=== PATIENT | female | born 1950 | race Caucasian/White ===

== ENCOUNTER 2017-09-04 17:54 | Inpatient (IN) | payer OTHER, MEDICARE ==
[~2017-09-04] VITALS: Ht 160 cm; Wt 85.7 kg
[2017-09-04 18:49] VITALS: BP 101/65; PULSE 116; RESP 18; TEMP 97.6; O2SAT 99
[2017-09-04] MEDS ORDERED: AMBI10TA PO (19:12)
--- NOTE | 2017-09-04 20:04 | PD ---
HPI Chief Complaint: Psychiatric Symptoms Time Seen by Provider: 19:29 Travel History International Travel<30 days: No Contact w/Intl Traveler<30days: No Traveled to known affect area: No History of Present Illness HPI 67-year-old white female presents to emergency department under [place] act by PD. Patient states that she was upset and had called her daughter. During our conversation she had stated that she would rather kill herself and continued to live with her partner who has developing dementia. Questionable Alzheimer's. The patient states that she is not suicidal. She is not homicidal. She had only made the statement out of frustration. She has no intention on hurting herself. She denies any toxic ingestions. No recent medical complaints other than her chronic insomnia. Patient denies chest pain, shortness of breath, nausea, vomiting, bowel pain urine symptoms. She denies alcohol tobacco. No drugs. PFSH Past Medical History Narrative Medical Insomnia Patient Takes Glucophage: No Tetanus Vaccination: > 5 Years Influenza Vaccination: Yes ?: Not Menopausal: Yes : 3 Para: 3 Miscarriage: 0 : 0 Tubal Ligation: Yes Past Surgical History Section: Yes (x3) Social History Alcohol Use: No (Pt denies.) Tobacco Use: No (Pt denies. ) Substance Use: No (Pt denies. ) Allergies-Medications (Allergen,Severity, Reaction): Coded Allergies: No Known Drug Allergies (Verified Allergy, Unknown, 09/04/17) Per pt. Reported Meds & Prescriptions Reported Meds & Active Scripts Active Reported Ambien (Zolpidem Tartrate) 10 Mg Tab 10 Mg PO HS Review of Systems General / Constitutional: No: Fever Eyes: No: Visual changes HENT: No: Headaches Cardiovascular: No: Chest Pain or Discomfort Respiratory: No: Shortness of Breath Gastrointestinal: No: Abdominal Pain Genitourinary: No: Dysuria Musculoskeletal: No: Pain Skin: No Rash Neurologic: No: Weakness Psychiatric: Positive: Depression, Mood Disorder, Other (insomnia), No: Anxiety , Suicidal Ideations, Disorder of Thought, Substance Abuse, Homicidal Ideation Endocrine: No: Polydipsia Hematologic/Lymphatic: No: Easy Bruising Physical Exam Narrative GENERAL: Well-nourished, well-developed patient. SKIN: Warm and dry. HEAD: Normocephalic and atraumatic. EYES: No scleral icterus. No injection or drainage. ENT: No nasal drainage noted. Mucous membranes pink. Airway patent. NECK: Supple, trachea midline. Moves head freely without obvious discomfort. CARDIOVASCULAR: Regular rate and rhythm without murmurs, gallops, or rubs. RESPIRATORY: Breath sounds equal bilaterally. No accessory muscle use. GASTROINTESTINAL: Abdomen soft, non-tender, nondistended. EXTREMITIES: No cyanosis or edema. BACK: Nontender without obvious deformity. No CVA tenderness. NEURO: Patient is alert and oriented. no sensorimotor deficits. Nonfocal. Normal speech. PSYCH: No delusions. No auditory or visual hallucinations. Data Data Last Documented VS Vital Signs Date Time Temp Pulse Resp B/P (MAP) Pulse Ox O2 Delivery O2 Flow Rate FiO2 09/04/17 23:46 91 16 123/73 (90) 96 Room Air 09/04/17 18:49 97.6 Orders Orders Diet Regular Basic (09/04/17 Dinner) Complete Blood Count With Diff (09/04/17 18:52) Comprehensive Metabolic Panel (09/04/17 18:52) Thyroid Stimulating Hormone (09/04/17 18:52) Urinalysis - C+S If Indicated (09/04/17 18:52) Psych Screen (09/04/17 18:52) Drug Screen, Random Urine (09/04/17 18:52) Alcohol (Ethanol) (09/04/17 18:52) Salicylates (Aspirin) (09/04/17 18:52) Tylenol (Acetaminophen) (09/04/17 18:52) MDM Medical Decision Making Medical Screen Exam Complete: Yes Emergency Medical Condition: Yes Medical Record Reviewed: Yes Differential Diagnosis MDM: High Differential diagnoses: Schizophrenia, schizoaffective disorder, bipolar, anxiety, depression, adjustment reaction, mood disorder NOS, ODD, depressive disorder NOS, dementia, dementia with agitation, psychosis NOS, substance induced mood disorder, DMDD, Asperger syndrome, infection,electrolyte abnormality, malingering. Narrative Course Mental health screening discussed with the patient. Psychiatric screen ordered. The patient refused laboratory testing. The patient does not appear toxic. Her vital signs are stable. There is no report of any toxic ingestion. We will not force the patient to succumb to laboratory testing. The patient will be allowed to be evaluated in the morning by the psychiatrist. Diagnosis Primary Impression: Medical clearance for psychiatric admission Condition: Stable Rikki Smiley Sep 04, 2017 20:04
[2017-09-04 22:16] VITALS: PULSE 98
[2017-09-04 23:46] VITALS: BP 123/73; PULSE 91; RESP 16; O2SAT 96
[2017-09-05] MEDS ORDERED: ACETAMINOPHEN 325 MG TAB PO PRN (00:30)
[2017-09-05] MEDS ORDERED: ALUMINUM/MAGNESIUM/SIMETH 30 ML CUP PO PRN (00:30)
[2017-09-05] MEDS ORDERED: MAGNESIUM HYDROXIDE SUSP 30 ML CUP PO PRN (00:30)
[2017-09-05] MEDS ORDERED: NICOTINE 21 MG/24 HR PATCH T-DERMAL PRN (00:30)
[2017-09-05] MEDS ORDERED: REMOVE OLD PATCH T-DERMAL PRN (00:45)
[2017-09-05 01:03] LABS: BASOPHIL # 0.1 TH/MM3 (0-0.2); BASOPHIL % 1.2 % (0.0-2.0); EOSINOPHIL # 0.2 TH/MM3 (0-0.4); EOSINOPHIL % 3.6 % (0.0-4.0); HEMATOCRIT 39.8 % (35.0-46.0); LYMPH % 51.8 % (9.0-44.0); LYMPHOCYTE # 3.2 TH/MM3 (1.0-4.8); MEAN CELL VOLUME 92.9 FL (80.0-100.0); MEAN CORPUSCULAR HEMOGLOBIN 32.6 PG (27.0-34.0); MEAN CORPUSCULAR HGB CONC 35.1 % (32.0-36.0); MONO % 11.1 % (0.0-8.0); MONOCYTE # 0.7 TH/MM3 (0-0.9); NEUT % 32.3 % (16.0-70.0); PLATELET COUNT 195 TH/MM3 (150-450); RED BLOOD COUNT 4.28 MIL/MM3 (4.00-5.30); RED CELL DISTRIBUTION WIDTH 13.8 % (11.6-17.2); WHITE BLOOD COUNT 6.1 TH/MM3 (4.0-11.0)
[2017-09-05 01:07] LABS: ALBUMIN 3.5 GM/DL (3.4-5.0); ALT (GPT) 43 U/L (10-53); AST (GOT) 38 U/L (15-37); BICARBONATE 22.9 MEQ/L (21.0-32.0); BLOOD UREA NITROGEN 21 MG/DL (7-18); CALCIUM 8.3 MG/DL (8.5-10.1); CHLORIDE 112 MEQ/L (98-107); CREATININE 0.98 MG/DL (0.50-1.00); GLOMERULAR FILTRATION RATE 56 ML/MIN (>89); GLUCOSE,RANDOM 85 MG/DL (74-106); SODIUM (NA) 146 MEQ/L (136-145)
[2017-09-05 01:18] LABS: ALKALINE PHOSPHATASE 95 U/L (45-117); TOTAL BILIRUBIN ADULT 0.3 MG/DL (0.2-1.0); TOTAL PROTEIN 7.6 GM/DL (6.4-8.2)
[2017-09-05 01:20] LABS: ACETAMINOPHEN LESS THAN 2.0 MCG/ML (10.0-30.0)
[2017-09-05 02:00] VITALS: BP 151/79; PULSE 81; RESP 16; TEMP 98.5; O2SAT 98
[2017-09-05 05:57] VITALS: BP 140/78; PULSE 71; RESP 16; TEMP 97.9; O2SAT 99
[2017-09-05] MEDS ORDERED: hydrOXYzine HCL 50 MG TAB PO PRN (14:45)
--- NOTE | 2017-09-05 14:48 | HHI.HP ---
Provisional Diagnosis Admission Date Sep 05, 2017 at 00:29 [place] I. Adjustment disorder with mixed disturbances of emotion and conduct Certification of Person's Competence To Provide Express and Informed Consent I have personally examined Susanna Barillas , a person being served at [facility] on, Sep 05, 2017 14:35. Express and informed consent means consent voluntarily given in writing, by a competent person, after sufficient explanation and disclosure of the subject matter involved to enable the person to make a knowing and willful decision without any element of force, fraud, deceit, duress, or other form of constraint or coercion. This person is 18 years of age or older, is not now known to be incompetent to consent to treatment with a guardian advocate, and does not have a health care surrogate or proxy currently making medical treatment decisions. I have found this person to be one of the following: [] Competent to provide express and informed consent, as defined above, for voluntary admission to this facility and is competent to provide express and informed consent for treatment. He/she has the consistent capacity to make well reasoned, willful, and knowing decisions concerning his or her medical or mental health treatment. The person fully and consistently understands the purpose of the admission for examination/placement and is fully capable of personally exercising all rights assured [place] [] Incompetent to provide express and informed consent to voluntary admission, and this is incompetent to provide express and informed consent to treatment. The person must be transferred to involuntary status and a petition for a guardian advocate filed with the Circuit Court. [xxx] Refusing to provide express and informed consent to voluntary admission but is competent to provide express and informed consent for treatment. The person must be discharged or transferred to involuntary status. Form shall be completed within 24 hours of a person's arrival at the receiving facility and filed in the clinical record of each person: 1. Admitted on a voluntary basis 2. Permitted to provide express and informed consent to his/her own treatment 3. Allowed to transfer from involuntary to voluntary status 4. Prior to permitting a person to consent to his or her own treatment after having been previously found incompetent to consent to treatment. History of Present Illness Capacity: Lacks Capacity (patient lacks capacity to sign for hospitalization, patient has capacity to sign for medication) Psych Chief Complaint: depressed suicidal ideation HPI Patient is a 67-year-old Q[place] female who comes her under [place] act by the [employer] dated 09/04/17 at 5:20 PM the document reviewed stating LC called her daughter and told her she wanted to kill herself multiple times because she is tired of dealing with her life partner having Alzheimer's LC stated to me that she felt like killing herself at that moment. Patient seen screened in the ED and appears there is no urine toxicology done on alcohol level was 11. Patient seen in her room with nurse rosemary, patient is alert oriented short stockily built female states she lives with her significant other 3-1/2 years, recently he has been trying more and more symptoms of Alzheimer's disease to the point where she is becoming more and more burdened by a been depressed by it. She acknowledges initial and mid insomnia with a.m. anergy, decreased appetite decreased concentration and attention. She states there is some increased irritability also. She states she's had some vague suicidal ideation. He states that some increased alcohol use also. She states she has used marijuana 10 years ago but none recently. She denies any voices or visions with this because of vagueness about the suicidality. She does state she has had at least one or 2 suicide attempts in number of years ago. Patient has 2 adult daughters who live in [place] and [place]. Mini-Mental the present time patient meets criteria for involuntary psychiatric hospitalization under the [place] act I'll do first opinion request second opinion. Because of this history of some increase alcohol use will place patient on the similar protocol. We will also offer her Remeron 15 mg at at bedtime. Hopeless. Short stay and return her to her home Review of Systems Constitutional: DENIES: Diaphoretic episodes, Fatigue, Fever, Weight gain, Weight loss, Chills, Dizziness, Change in appetite, Night Sweats Endocrine: DENIES: Abnorml menstrual pattern, Heat/cold intolerance, Polydipsia , Polyuria, Polyphagia Eyes: DENIES: Blurred vision, Diplopia, Eye inflammation, Eye pain, Vision loss , Photosensitivity, Double Vision Ears, nose, mouth, throat: DENIES: Tinnitus, Hearing loss, Vertigo, Nasal discharge, Oral lesions, Throat pain, Hoarseness, Ear Pain, Running Nose, Epistaxis, Sinus Pain, Toothache, Odynophagia Respiratory: DENIES: Apneas, Cough, Snoring, Wheezing, Hemoptysis, Sputum production, Shortness of breath Cardiovascular: DENIES: Chest pain, Palpitations, Syncope, Dyspnea on Exertion , PND, Lower Extremity Edema, Orthopnea, Claudication Gastrointestinal: DENIES: Abdominal pain, Black stools, Bloody stools, Constipation, Diarrhea, Nausea, Vomiting, Difficulty Swallowing, Anorexia Genitourinary: DENIES: Abnormal vaginal bleeding, Dysmenorrhea, Dyspareunia, Sexual dysfunction, Urinary frequency, Urinary incontinence, Urgency, Hematuria , Dysuria, Nocturia, Vaginal discharge Musculoskeletal: DENIES: Joint pain, Muscle aches, Stiffness, Joint Swelling, Back pain, Neck pain Integumentary: DENIES: Abnormal pigmentation, Pruritus, Rash, Nail changes, Breast masses, Breast skin changes, Nipple discharge Hematologic/lymphatic: DENIES: Bruising, Lymphadenopathy Immunologic/allergic: DENIES: Eczema, Urticaria Neurologic: DENIES: Abnormal gait, Headache, Localized weakness, Paresthesias, Seizures, Speech Problems, Tremor, Poor Balance Psychiatric: COMPLAINS OF: Anxiety, Depression, Suicidal Ideation Past Psych History Psychological trauma history Patient denies Violence risk - others (6 mos) Low Violence risk - self (6 mos) Low to moderate Substance Abuse History Drugs/Alcohol past 12 months Patient has had recent increase in alcohol use states no marijuana use and many years Past Family Social History Coded Allergies: No Known Drug Allergies (Verified Allergy, Unknown, 09/04/17) Per pt. Reported Medications Zolpidem (Ambien) 10 Mg Tab, 10 MG PO HS, TAB 0 Refills 09/04/17 Current Medications Medications (Trade) Dose Ordered Sig/Felicita Route Start Time Stop Time Status Last Admin (Tylenol) 650 mg Q4H PRN PO 09/05/17 00:30 09/05/17 01:32 (Milk Of Magnesia Liq) 30 ml DAILY PRN PO 09/05/17 00:30 (Mag-Al Plus Susp Liq) 30 ml Q6H PRN PO 09/05/17 00:30 (Habitrol 21 Mg Patch.24 Hr) 1 patch DAILY PRN T-DERMAL 09/05/17 00:30 Miscellaneous Information 1 HS PRN T-DERMAL 09/05/17 00:45 (Remeron) 15 mg HS PO 09/05/17 21:00 UNV Family Psych History Patient denies Social History Patient and lives with significant other at this time Patient's Strengths (min. 2) Patient verbal label axis health care Physical Exam Patient medically cleared ED patient resting quietly in her room she is in no acute distress, she is in no respiratory distress, no complaints of abdominal pain. Patient moves all 4 extremities without difficulty no abnormal motor movements noted Vital Signs Vital Signs Date Time Temp Pulse Resp B/P (MAP) Pulse Ox O2 Delivery O2 Flow Rate FiO2 09/05/17 05:57 97.9 71 16 140/78 (98) 99 09/04/17 23:46 Room Air Lab Results Test 09/05/17 00:36 White Blood Count 6.1 TH/MM3 Red Blood Count 4.28 MIL/MM3 Hemoglobin 14.0 GM/DL Hematocrit 39.8 % Mean Corpuscular Volume 92.9 FL Mean Corpuscular Hemoglobin 32.6 PG Mean Corpuscular Hemoglobin Concent 35.1 % Red Cell Distribution Width 13.8 % Platelet Count 195 TH/MM3 Mean Platelet Volume 9.0 FL Neutrophils (%) (Auto) 32.3 % Lymphocytes (%) (Auto) 51.8 % Monocytes (%) (Auto) 11.1 % Eosinophils (%) (Auto) 3.6 % Basophils (%) (Auto) 1.2 % Neutrophils # (Auto) 2.0 TH/MM3 Lymphocytes # (Auto) 3.2 TH/MM3 Monocytes # (Auto) 0.7 TH/MM3 Eosinophils # (Auto) 0.2 TH/MM3 Basophils # (Auto) 0.1 TH/MM3 CBC Comment DIFF FINAL Differential Comment Blood Urea Nitrogen 21 MG/DL Creatinine 0.98 MG/DL Random Glucose 85 MG/DL Total Protein 7.6 GM/DL Albumin 3.5 GM/DL Calcium Level 8.3 MG/DL Alkaline Phosphatase 95 U/L Aspartate Amino Transf (AST/SGOT) 38 U/L Alanine Aminotransferase (ALT/SGPT) 43 U/L Total Bilirubin 0.3 MG/DL Sodium Level 146 MEQ/L Potassium Level 3.9 MEQ/L Chloride Level 112 MEQ/L Carbon Dioxide Level 22.9 MEQ/L Anion Gap 11 MEQ/L Estimat Glomerular Filtration Rate 56 ML/MIN Free Thyroxine 0.98 NG/DL Thyroid Stimulating Hormone 3rd Gen 4.450 uIU/ML Salicylates Level LESS THAN 1.7 MG/DL Acetaminophen Level LESS THAN 2.0 MCG/ML Ethyl Alcohol Level 11 MG/DL Mental Status Examination Appearance: Disheveled Consciousness: Alert Orientation: x4 Motor Activity: Normal gait Speech: Unremarkable Language: Adequate Fund of Knowledge: Adequate Attention and Concentration: Adequate Memory: Impaired Mood: Sad Affect: Other (decreased range and intensity) Thought Process & Associations: Intact Thought Content: Appropriate Hallucination Type: None Delusion Type: None Suicidal Ideation: No (denies) Suicidal Plan: No Suicidal Intention: No Homicidal Ideation: No Homicidal Plan: No Insight: Fair Judgment: Impulsive Assessment & Plan Problem List: (1) Adjustment disorder with mixed disturbance of emotions and conduct in remission ICD Codes: F43.25 - Adjustment disorder with mixed disturbance of emotions and conduct Assessment & Plan Estimated LOS: 3-5 days this time patient meets criteria for involuntary psychiatric hospitalization on the [place] act I'll do first opinion request second opinion. I feel she has capacity. We'll start patient on Remeron 15 mg at at bedtime. Because of the slight increase use of alcohol will also initiate the ciwa protocol Discharge Planning Return home Request HC Surrog/Guard Advoc?: No Michael Combs MD Sep 05, 2017 14:48
[2017-09-05] MEDS ORDERED: LORazepam 2 MG/ML VIAL IV PUSH PRN ×4 (15:15)
[2017-09-05] MEDS ORDERED: LORazepam 2 MG TAB PO PRN (15:15)
[2017-09-05] MEDS ORDERED: LORazepam 1 MG TAB PO PRN (15:15)
[2017-09-05] MEDS ORDERED: FLUMAZENIL 0.5 MG/5 ML VIAL IV PUSH PRN (15:15)
[2017-09-05 17:40] VITALS: BP 119/79; PULSE 130; RESP 18; TEMP 98; O2SAT 97
[2017-09-05] MEDS: MIRTAZAPINE 15 MG TAB PO SCH (21:20)
[2017-09-06 06:21] VITALS: BP 139/71; PULSE 70; RESP 16; TEMP 98.1
--- NOTE | 2017-09-06 08:06 | PD.PSY.CON ---
Provisional Diagnosis Admission Date Sep 05, 2017 at 00:29 [place] I. Adjustment disorder with mixed disturbances of emotion and conduct History of Present Illness Service Psychiatry Consult Requested By Dr. Combs Reason for Consult Second opinion Primary Care Physician Claudia oCllins M.D. HPI Patient is a 67-year-old Israeli female who comes her under [place] act by the [facility] [employer] dated 09/04/17 at 5:20 PM the document reviewed stating LC called her daughter and told her she wanted to kill herself multiple times because she is tired of dealing with her life partner having Alzheimer's LC stated to me that she felt like killing herself at that moment. Patient seen screened in the ED and appears there is no urine toxicology done on alcohol level was 11. Patient seen in her room with nurse rosemary, patient is alert oriented short stockily built female states she lives with her significant other 3-1/2 years, recently he has been trying more and more symptoms of Alzheimer's disease to the point where she is becoming more and more burdened by a been depressed by it. She acknowledges initial and mid insomnia with a.m. anergy, decreased appetite decreased concentration and attention. She states there is some increased irritability also. She states she's had some vague suicidal ideation. He states that some increased alcohol use also. She states she has used marijuana 10 years ago but none recently. She denies any voices or visions with this because of vagueness about the suicidality. She does state she has had at least one or 2 suicide attempts in number of years ago. Patient has 2 adult daughters who live in [place] and [place]. Mini-Mental the present time patient meets criteria for involuntary psychiatric hospitalization under the [place] act I'll do first opinion request second opinion. Because of this history of some increase alcohol use will place patient on the similar protocol. We will also offer her Remeron 15 mg at at bedtime. Hopeless. Short stay and return her to her home 09/06/17 -second opinion Patient is a 67-year-old Filipina woman, domiciled with significant other who was brought under [place] act by police after having stated that she would kill herself rather live with her partner that has dementia which daughter called 9 1 and patient was brought to the inpatient psychiatry for further evaluation and management. As per nursing staff patient blames daughter for her admission. Patient was found in day room eating breakfast noted, cooperative. Patient states that she is in hospital because she had taken Ambien "which made me all weird" as well as having drank alcohol at that time when she calls her daughter stated "do you want me to kill myself". She states that her daughter then called 9 1 was brought to police to her residence that she was brought to the hospital. Patient states she has not had previous episodes of suicidal ideations nor having previous suicide attempt although chart reports patient has had prior suicide attempts. Patient states she had been sad recently her partner having memory loss and diagnosis of Alzheimer's since June this year and states having been sad since. Patient reports having poor sleep recently along with decreased appetite but denies any changes in energy, concentration, feelings of guilt or feeling helpless or hopeless. Patient denies any perceptual disturbances or delusions. Past Family Social History Coded Allergies: No Known Drug Allergies (Verified Allergy, Unknown, 09/04/17) Per pt. Reported Medications Zolpidem (Ambien) 10 Mg Tab, 10 MG PO HS, TAB 0 Refills 09/04/17 Current Medications Medications (Trade) Dose Ordered Sig/Felicita Route Start Time Stop Time Status Last Admin (Tylenol) 650 mg Q4H PRN PO 09/05/17 00:30 09/05/17 01:32 (Milk Of Magnesia Liq) 30 ml DAILY PRN PO 09/05/17 00:30 (Mag-Al Plus Susp Liq) 30 ml Q6H PRN PO 09/05/17 00:30 (Habitrol 21 Mg Patch.24 Hr) 1 patch DAILY PRN T-DERMAL 09/05/17 00:30 Miscellaneous Information 1 HS PRN T-DERMAL 09/05/17 00:45 (Remeron) 15 mg HS PO 09/05/17 21:00 09/05/17 21:20 (Atarax) 50 mg Q6H PRN PO 09/05/17 14:45 (Romazicon Inj) 0.2 mg Q1M PRN IV PUSH 09/05/17 15:15 (Ativan) 1 mg Q4H PRN PO 09/05/17 15:15 (Ativan Inj) 1 mg Q4H PRN IV PUSH 09/05/17 15:15 (Ativan) 2 mg Q2H PRN PO 3/22/18 15:15 (Ativan Inj) 2 mg Q2H PRN IV PUSH 09/05/17 15:15 (Ativan Inj) 2 mg Q1H PRN IV PUSH 09/05/17 15:15 (Ativan Inj) 2 mg Q15M PRN IV PUSH 09/05/17 15:15 Patient's Strengths (min. 2) Patient verbal label axis health care Physical Exam Vital Signs Vital Signs Date Time Temp Pulse Resp B/P (MAP) Pulse Ox O2 Delivery O2 Flow Rate FiO2 09/06/17 06:21 98.1 70 16 139/71 (93) 09/05/17 17:40 97 09/04/17 23:46 Room Air Mental Status Examination Appearance: Appropriate Consciousness: Alert Orientation: x4 Motor Activity: Normal gait Speech: Unremarkable Language: Adequate Fund of Knowledge: Adequate Attention and Concentration: Adequate Memory: Impaired Mood: Sad Affect: Sad, Other Thought Process & Associations: Intact Thought Content: Appropriate Hallucination Type: None Delusion Type: None Suicidal Ideation: No (denies) Suicidal Plan: No Suicidal Intention: No Homicidal Ideation: No Homicidal Plan: No Insight: Fair Judgment: Impulsive Assessment & Plan Problem List: (1) Adjustment disorder with mixed disturbance of emotions and conduct in remission ICD Codes: F43.25 - Adjustment disorder with mixed disturbance of emotions and conduct Assessment & Plan I have seen and examined this patient, reviewed the documentation, discussed personally with Dr. Combs, and I agree and concur with his assessment and plan. Consult appreciated. Request HC Surrog/Guard Advoc?: Gen Alvarado MD Sep 06, 2017 08:06
[2017-09-06 13:11] LABS: CHOLESTEROL 206 MG/DL (120-200)
[2017-09-06 13:12] LABS: CHOLESTEROL/ HDL RATIO 1.75 RATIO; HDL CHOLESTEROL 117.4 MG/DL (40.0-60.0); LDL CHOLESTEROL 42 MG/DL (0-99); TRIGLYCERIDES 232 MG/DL (42-150)
--- NOTE | 2017-09-06 15:54 | HHI.PYPN ---
Subjective Chief Complaint: depressed suicidal ideation Remarks Patient seen in her room with nurse Fabien, chart review, patient discussed with nurse. Patient compliant medication. Patient continues depressed though she is improving. She denies suicidality at the present time. She states she's had fairly good conversations with her family members. And her sleep is improved somewhat. For now continue treatment Review of Systems Except as stated in HPI: all other systems reviewed are Neg Mental Status Examination Appearance: Appropriate Consciousness: Alert Orientation: x4 Motor Activity: Normal gait Speech: Unremarkable Language: Adequate Fund of Knowledge: Adequate Attention and Concentration: Adequate Memory: Impaired Mood: Sad Affect: Sad, Other Thought Process & Associations: Intact Thought Content: Appropriate Hallucination Type: None Delusion Type: None Suicidal Ideation: No (denies) Suicidal Plan: No Suicidal Intention: No Homicidal Ideation: No Homicidal Plan: No Insight: Fair Judgment: Impulsive Results Labs Test 09/06/17 11:50 Triglycerides Level 232 MG/DL Cholesterol Level 206 MG/DL LDL Cholesterol 42 MG/DL HDL Cholesterol 117.4 MG/DL Cholesterol/HDL Ratio 1.75 RATIO Vitals/IOs Vital Signs Date Time Temp Pulse Resp B/P (MAP) Pulse Ox O2 Delivery O2 Flow Rate FiO2 09/06/17 06:21 98.1 70 16 139/71 (93) 09/05/17 17:40 97 09/04/17 23:46 Room Air Assessment & Plan Problem List: (1) Adjustment disorder with mixed disturbance of emotions and conduct in remission ICD Codes: F43.25 - Adjustment disorder with mixed disturbance of emotions and conduct Assessment & Plan Estimated LOS: days patient continues depressed though improving somewhat, slept somewhat better. Compliant medications. For now continue treatment Justification for Cont. Inpt. At this time patient decompensated placed a lower level of care Discharge Planning Return home Request HC Surrog/Guard Advoc?: No Michael Combs MD Sep 06, 2017 15:54
[2017-09-06 17:45] VITALS: BP 128/66; PULSE 80; RESP 18; TEMP 98.1; O2SAT 99
[2017-09-06 19:14] LABS: HEMOGLOBIN A1C 5.8 % (4.3-6.0)
[2017-09-06] MEDS: MIRTAZAPINE 15 MG TAB PO SCH (21:03)
[2017-09-07 06:15] VITALS: BP 127/70; PULSE 93; RESP 18; TEMP 98.3; O2SAT 97
--- NOTE | 2017-09-07 14:29 | HHI.PYPN ---
Subjective Chief Complaint: depressed suicidal ideation Remarks Pt seen and discussed with staff. She has been cooperative with care and compliant with medications. She is tolerating antidepressant without side effects. CIWA has been negative. She denies SI/HI today. She states that she combined ambien with alcohol and believes that is what led to her "outbursts". Mental Status Examination Appearance: Appropriate Consciousness: Alert Orientation: x4 Motor Activity: Normal gait Speech: Unremarkable Language: Adequate Fund of Knowledge: Adequate Attention and Concentration: Adequate Memory: Impaired Mood: Anxious Affect: Anxious Thought Process & Associations: Intact Thought Content: Appropriate Hallucination Type: None Delusion Type: None Suicidal Ideation: No (denies) Suicidal Plan: No Suicidal Intention: No Homicidal Ideation: No Homicidal Plan: No Insight: Fair Judgment: Impulsive Results Vitals/IOs Vital Signs Date Time Temp Pulse Resp B/P (MAP) Pulse Ox O2 Delivery O2 Flow Rate FiO2 09/07/17 06:15 98.3 93 18 127/70 (89) 97 09/04/17 23:46 Room Air Assessment & Plan Problem List: (1) Adjustment disorder with mixed disturbance of emotions and conduct in remission ICD Codes: F43.25 - Adjustment disorder with mixed disturbance of emotions and conduct Assessment & Plan Continue current tx plan. Estimated LOS: days Justification for Cont. Inpt. monitoring for safety Request HC Surrog/Guard Advoc?: Jonna Ortiz MD Sep 07, 2017 14:29
[2017-09-07 18:23] VITALS: BP 118/74; PULSE 77; RESP 18; TEMP 97.8; O2SAT 99
[2017-09-07 18:26] VITALS: BP 112/71; PULSE 78; RESP 18; TEMP 98.2; O2SAT 98
[2017-09-07] MEDS: MIRTAZAPINE 15 MG TAB PO SCH (20:59)
[2017-09-08 05:35] VITALS: BP 147/78; PULSE 65; RESP 16; TEMP 98.1; O2SAT 98
--- NOTE | 2017-09-08 14:58 | HHI.PYPN ---
Subjective Chief Complaint: depressed suicidal ideation Remarks Pt seen and discussed with staff. No behavioral problems. She reports that mood is improved and depression has lessened. She is compliant with medications and denies side effects. No SI/HI Mental Status Examination Appearance: Appropriate Consciousness: Alert Orientation: x4 Motor Activity: Normal gait Speech: Unremarkable Language: Adequate Fund of Knowledge: Adequate Attention and Concentration: Adequate Memory: Impaired Mood: Anxious Affect: Anxious Thought Process & Associations: Intact Thought Content: Appropriate Hallucination Type: None Delusion Type: None Suicidal Ideation: No (denies) Suicidal Plan: No Suicidal Intention: No Homicidal Ideation: No Homicidal Plan: No Insight: Adequate Judgment: Adequate Results Vitals/IOs Vital Signs Date Time Temp Pulse Resp B/P (MAP) Pulse Ox O2 Delivery O2 Flow Rate FiO2 09/08/17 05:35 98.1 65 16 147/78 (101) 98 09/04/17 23:46 Room Air Assessment & Plan Problem List: (1) Adjustment disorder with mixed disturbance of emotions and conduct in remission ICD Codes: F43.25 - Adjustment disorder with mixed disturbance of emotions and conduct Assessment & Plan Pt improving. Continue current tx plan. Estimated LOS: days Justification for Cont. Inpt. risk of decompensation Request HC Surrog/Guard Advoc?: No Jonna Young MD Sep 08, 2017 14:58
[2017-09-08 17:58] VITALS: BP 146/70; PULSE 81; RESP 17; TEMP 97.8
[2017-09-08 18:43] VITALS: O2SAT 97
[2017-09-08] MEDS: MIRTAZAPINE 15 MG TAB PO SCH (21:11)
[2017-09-09 05:59] VITALS: BP 102/53; PULSE 73; RESP 16; TEMP 98.2; O2SAT 97
[2017-09-09 06:08] VITALS: BP 128/60; PULSE 71; RESP 18; TEMP 98.1; O2SAT 97
[2017-09-09] MEDS ORDERED: MIRTA15 PO (15:44)
--- NOTE | 2017-09-09 15:47 | HHI.DS ---
Psychiatry Discharge Summary Inpatient Psychiatric care?: Yes Advance Directive: No Reason Not Provided: pt not interested in advance directive Mental Health AdvanceDirective: No Health Care Proxy: No Admission Admission Date Sep 05, 2017 at 00:29 Admission Diagnosis: (1) Adjustment disorder with mixed disturbance of emotions and conduct in remission ICD Code: F43.25 - Adjustment disorder with mixed disturbance of emotions and conduct Brief History Patient is a 67-year-old Citizen Of [place] female who comes her under [place] act by the [place] [employer] dated 09/04/17 at 5:20 PM the document reviewed stating LC called her daughter and told her she wanted to kill herself multiple times because she is tired of dealing with her life partner having Alzheimer's LC stated to me that she felt like killing herself at that moment. Patient seen screened in the ED and appears there is no urine toxicology done on alcohol level was 11. Patient seen in her room with nurse rosemary, patient is alert oriented short stockily built female states she lives with her significant other 3-1/2 years, recently he has been trying more and more symptoms of Alzheimer's disease to the point where she is becoming more and more burdened by a been depressed by it. She acknowledges initial and mid insomnia with a.m. anergy, decreased appetite decreased concentration and attention. She states there is some increased irritability also. She states she's had some vague suicidal ideation. He states that some increased alcohol use also. She states she has used marijuana 10 years ago but none recently. She denies any voices or visions with this because of vagueness about the suicidality. She does state she has had at least one or 2 suicide attempts in number of years ago. Patient has 2 adult daughters who live in [place] and [place]. Mini-Mental the present time patient meets criteria for involuntary psychiatric hospitalization under the [place] act I'll do first opinion request second opinion. Because of this history of some increase alcohol use will place patient on the similar protocol. We will also offer her Remeron 15 mg at at bedtime. Hopeless. Short stay and return her to her home 09/06/17 -second opinion Patient is a 67-year-old [place] woman, domiciled with significant other who was brought under [place] act by police after having stated that she would kill herself rather live with her partner that has dementia which daughter called 9 1 and patient was brought to the inpatient psychiatry for further evaluation and management. As per nursing staff patient blames daughter for her admission. Patient was found in day room eating breakfast noted, cooperative. Patient states that she is in hospital because she had taken Ambien "which made me all weird" as well as having drank alcohol at that time when she calls her daughter stated "do you want me to kill myself". She states that her daughter then called 9 1 was brought to police to her residence that she was brought to the hospital. Patient states she has not had previous episodes of suicidal ideations nor having previous suicide attempt although chart reports patient has had prior suicide attempts. Patient states she had been sad recently her partner having memory loss and diagnosis of Alzheimer's since June this year and states having been sad since. Patient reports having poor sleep recently along with decreased appetite but denies any changes in energy, concentration, feelings of guilt or feeling helpless or hopeless. Patient denies any perceptual disturbances or delusions. Tobacco Use In Past 30 Days: No Tobacco Past 30 Days Alcohol Use: Monthly or Less Hospital Course Patient's hospital course was uneventful, she was calm cooperative and integrated into the busy without difficulty. She is been compliant with her medications. She denies suicidality homicidality voices or visions. She states she is calmer more focused, has had good conversations with her family. At this time I feel patient is reached maximum benefit of this hospitalization. Patient to be discharged today to herself with Rx Remeron 1 month, follow-up [facility] act medication management Results Blood Pressure 128 / 60 Vital Signs Date Time Temp Pulse Resp B/P (MAP) Pulse Ox O2 Delivery O2 Flow Rate FiO2 09/09/17 06:08 98.1 71 18 128/60 (82) 97 Laboratory Results Test 09/06/17 11:50 Cholesterol Level 206 MG/DL (120-200) HDL Cholesterol 117.4 MG/DL (40.0-60.0) Hemoglobin A1c 5.8 % (4.3-6.0) LDL Cholesterol 42 MG/DL (0-99) Triglycerides Level 232 MG/DL (42-150) Summary of Procedures None done Pending results at discharge: No Medications # of Antipsychotic meds at D/C: 0 Approp Antipsych med options 1 - Minimum of three failed multiple trials of monotherapy. 2 - Documented plan to taper to monotherapy due to previous use of multiple meds OR cross-taper in progress at D/C. 3 - Documentation of augmentation of Clozapine. 4 - Justification other than those listed in allowable values 1-3, document here : Discharge Discharge Date: Sep 09, 2017 Discharge Diagnosis: (1) Adjustment disorder with mixed disturbance of emotions and conduct in remission Diagnosis: Principal ICD Code: F43.25 - Adjustment disorder with mixed disturbance of emotions and conduct Pt Condition on Discharge: Stable Discharge Disposition: Discharge Home Discharge Instructions Diet Instructions: As Tolerated, No Restrictions Activities you can perform: Regular-No Restrictions Scheduled Appointment: Mario Valenzuela Discharge Time > 30 minutes Mental Status Examination Appearance: Appropriate Consciousness: Alert Orientation: x4 Motor Activity: Normal gait Speech: Unremarkable Language: Adequate Fund of Knowledge: Adequate Attention and Concentration: Adequate Memory: Impaired Mood: Anxious Affect: Anxious Thought Process & Associations: Intact Thought Content: Appropriate Hallucination Type: None Delusion Type: None Suicidal Ideation: No (denies) Suicidal Plan: No Suicidal Intention: No Homicidal Ideation: No Homicidal Plan: No Insight: Adequate Judgment: Adequate Discharge/Advance Care Plan Health Problems: (1) Adjustment disorder with mixed disturbance of emotions and conduct in remission Goals to promote your health * To prevent worsening of your condition and complications * To maintain your health at the optimal level Directions to meet your goals Take your medications as prescribed Follow your dietary instruction Follow activity as directed Keep your appointments as scheduled Take your immunizations and boosters as scheduled If your symptoms worsen call your PCP, if no PCP go to Urgent Care Center or Emergency Room For 07/01 questions related to your inpatient stay or results of tests pending at discharge, please contact Dr. Michael Combs at Smoking is Dangerous to Your Health. Avoid second hand smoking Michael Combs MD Sep 09, 2017 15:47
== END 2017-09-09 16:50 | disposition home or self-care (01) | DRG 882 ==
LOC: NEPJ 17:54 → NEDA 09-05 00:29 → H260 09-05 01:45
PROVIDERS: ADMIT Psychiatry & Neurology Psychiatry; ATTEND Psychiatry & Neurology Psychiatry
DX: F43.25 Adjustment disorder with mixed disturbance of emotions and conduct (principal)
CPT/HCPCS: 80053; 80061; 80307; 83036; 84439; 84443; 85025; 99285